=== PATIENT | female | born 2000 | race Caucasian/White ===

== ENCOUNTER → 2020-10-09 | Outpatient (CLI) | payer OTHER ==
[~2020-10-09] MED LIST: BUTALB-APAP-CA1 EACH PO; CEPHALEXIN 500500 M3 PO; ONDANSETRON HCL4 M2 PO; VISTARIL 25 MG25 M1 PO; XANAX 0.5 MG0.5 MG PO
== END ==
LOC: M.ULTRA 07:12
PROVIDERS: ATTEND Specialist
DX: R14.0 Abdominal distension (gaseous) (principal); R11.2 Nausea with vomiting, unspecified